=== PATIENT | female | born 1970 | race Caucasian/White ===

== ENCOUNTER 2023-07-29 11:24 | Emergency (ER) | payer BC, SELFPAY ==
[2023-07-29 11:27] VITALS: BP 134/81
--- NOTE | 2023-07-29 13:29 | ED.GENMED ---
History of Present Illness
<ANDERSON Guajardo - Last Filed: 07/29/23 20:16>
General
Chief Complaint: Abdominal Pain
Source: patient
Exam Limitations: none
Time Seen by Provider: 07/29/23 13:04
Nursing documentation reviewed up to this point in time: agreed with
Travel History
Have you had any contact with someone who has COVID-19?: No
Do you have any symptoms of coronavirus? Fever > 100 degrees, chills, cough, shortness of breath, sore throat, loss of taste or smell, muscle aches, or headache?: No
History of Present Illness
History of Present Illness:
Patient is a 53-year-old female status post hysterectomy 328 at [facility](6 d agao). Patient reports it was done through her umbilicus. Thursday she had a lot of gas pains but on Thursday she noticed upper abdominal pain and bilateral back
pain. Where she feels a twisting and a popping sensation in her abdomen and feels a lump to the left side of her umbilical region. She has been a little constipated but has been using MiraLAX and did move her bowels twice today, small bowel
movement. She denies any nausea vomiting she denies any fever chills. She reports she feels very hot and she is very anxious over the situation. She denies any urinary frequency urgency or dysuria. Denies any shortness of breath.
Past History
<ANDERSON Guajardo - Last Filed: 07/29/23 20:16>
Past History
ED Past Medical History: Asthma, Hypercholesterolemia, Hypothyroidism and Other (Migraine, PVCs, hypercholesterolemia)
ED Past Surgical History: Other (Sinus)
Social History
Tobacco: Non-smoker
Alcohol: None
Drug: None
Personal:
Living: with family
Employment: Employed
Family History
Family History: CAD and Other (hyperCholesterolemia, diabetes)
Review of Systems
<ANDERSON Guajardo - Last Filed: 07/29/23 20:16>
Review of Systems
Allergies reviewed?: Yes
All Other Systems: ROS reviewed and negative except as documented in HPI and ROS
Constitutional: Reports no symptoms; Denies fever, fatigue or chills
EENT: Reports no symptoms
Respiratory: Reports no symptoms
Cardiac: Reports no symptoms
ABD/GI: Reports abdominal pain, nausea and constipated; Denies vomiting
: Reports no symptoms
Musculoskeletal: Reports back pain
Neurological: Reports no symptoms
Hematologic/Lymphatic: Reports no symptoms
Psychiatric: Reports no symptoms
Phy Exam
<ANDERSON Guajardo - Last Filed: 07/29/23 20:16>
General Physical Exam
General Presentation: no apparent distress
General age: appears stated age
General Skin: warm and dry
General Habitus: normal
General Mental: alert
General Hydration: appears well hydrated
Cardiovascular Exam
Cardiovascular Exam: regular rate/rhythm, no murmur and normal peripheral pulses
Pulmonary Exam
Pulmonary Exam: lungs clear and no respiratory distress
Gastrointestinal Exam
Gastrointestinal Exam: soft and other (Ecchymosis around umbilical area+ tender to the left of the umbilical region questionable small palpable superficial mass around umbilicus, no erythema to umbilical region abd soft )
Neurological Exam
Neurological Exam: alert and oriented x3
Musculoskeletal Exam
Musculoskeletal Exam: full ROM
Skin Exam
Skin Exam: normal color and warm/dry
Psychiatric Exam
Psychiatric Exam: anxious
Course
<ANDERSON Guajardo - Last Filed: 07/29/23 20:16>
Orders/Labs/Results
Orders:
Orders
07/29/23 13:22
Cardiac Monitoring- Treatment ONCE
IV Insert/Care/Rem.- Treatment PRN
0.9% Sodium Chloride 1000 ml [Nss] 1,000 ml IV BOLUS
07/29/23 13:45
CT Abd/pel (oral only)-[facility] Only Urgent
Comment:
Reason For Exam: post op abd pain, incisional lump
Iohexol [Omnipaque] See Protocol PO NOW STA
07/29/23 13:57
Complete Blood Count/With Diff Urgent
Comprehensive Metabolic Panel Urgent
Urinalysis Reflex To Culture Urgent
Date Specimen was Collected: 07/29/23
Time Specimen was Collected: 13:30
07/29/23 14:03
Iohexol [Omnipaque] 50 ml .ROUTE .[facility]
07/29/23 17:21
Vital Signs- Treatment ONCE
Frequency: Once
Abnormal Lab Results
07/29/23
13:57
MCH 25.6 L pg
(27.0-31.0)
MCHC 31.5 L g/dL
(33.0-37.0)
RDW 14.9 H %
(11.5-14.5)
Lymphocytes % 16.7 L %
(20.5-51.1)
Carbon Dioxide 21 L mmol/L
(22-30)
Glucose 105 H mg/dl
(70-99)
07/29/23 13:57
07/29/23 13:57
Vital Signs
Initial and Last Documented VS:
Initial Vital Signs
Temp Pulse Resp BP Pulse Ox
98.7 F 100 18 134/81 98
07/29/23 11:27 07/29/23 11:27 07/29/23 11:27 07/29/23 11:27 07/29/23 11:27
Last Documented Vital Signs
Temp Pulse Resp BP Pulse Ox
98.7 F 104 20 131/91 95
07/29/23 11:27 07/29/23 17:26 07/29/23 17:26 07/29/23 17:24 07/29/23 17:24
Inspector Tool consulted with Physician
Inspector Tool consulted with physician?: Yes
Name of Physician Consulted: [place]
<Isidro Hahn MD - Last Filed: 07/29/23 15:17>
Orders/Labs/Results
Orders:
Orders
07/29/23 13:22
Cardiac Monitoring- Treatment ONCE
IV Insert/Care/Rem.- Treatment PRN
0.9% Sodium Chloride 1000 ml [Nss] 1,000 ml IV BOLUS
07/29/23 13:45
CT Abd/pel (oral only)-[facility] Only Urgent
Comment:
Reason For Exam: post op abd pain, incisional lump
Iohexol [Omnipaque] See Protocol PO NOW STA
07/29/23 13:57
Complete Blood Count/With Diff Urgent
Comprehensive Metabolic Panel Urgent
Urinalysis Reflex To Culture Urgent
Date Specimen was Collected: 07/29/23
Time Specimen was Collected: 13:30
07/29/23 14:03
Iohexol [Omnipaque] 50 ml .ROUTE .[facility]
07/29/23 17:21
Vital Signs- Treatment ONCE
Frequency: Once
Abnormal Lab Results
07/29/23
13:57
MCH 25.6 L pg
(27.0-31.0)
MCHC 31.5 L g/dL
(33.0-37.0)
RDW 14.9 H %
(11.5-14.5)
Lymphocytes % 16.7 L %
(20.5-51.1)
Carbon Dioxide 21 L mmol/L
(22-30)
Glucose 105 H mg/dl
(70-99)
07/29/23 13:57
07/29/23 13:57
Vital Signs
Initial and Last Documented VS:
Initial Vital Signs
Temp Pulse Resp BP Pulse Ox
98.7 F 100 18 134/81 98
07/29/23 11:27 07/29/23 11:27 07/29/23 11:27 07/29/23 11:27 07/29/23 11:27
Last Documented Vital Signs
Temp Pulse Resp BP Pulse Ox
98.7 F 104 20 131/91 95
07/29/23 11:27 07/29/23 17:26 07/29/23 17:26 07/29/23 17:24 07/29/23 17:24
<ANDERSON Guajardo - Last Filed: 07/29/23 20:16>
MDM/Problems Addressed
Differential Diagnosis Includes:
Not limited to seroma, less likely hernia
MDM/Problems Addressed:
As documented patient presented to the ER complaining of abdominal pain and was concerned about the palpable lumps that she noticed around her umbilical region since her hysterectomy July 22 at [facility]. She presents awake alert no acute
distress she is very anxious. She is afebrile denies any recent fevers with a normal white count stable hemoglobin of 12.1 normal kidney function. On exam patient does have scattered round umbilical area/surgical site small palpable superficial
mass. Patient has anaphylactic allergy to IV contrast. Patient was eval by ED physician or it was done. CAT scan does show increased band of density with stranding around the surrounding fat in the anterior abdominal wall likely postsurgical
changes and inflammation at this laparoscopic portal site. There is no evidence of abscess.
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 I did recommend close outpatient follow-up with family doctor for
these findings however I also reviewed with patient the importance of follow-up with her surgeon/gynecology for continued symptoms.
<ANDERSON Guajardo - Last Filed: 07/29/23 20:16>
*Radiology
Radiology exam reviewed: radiology read reviewed
*Pulse Oximetry
Patient hypoxic: no
*Critical Care Note
Total Time (30-74mins, 75-104mins- exclusive of procedures): Not Applicable
ED Attending Note
<ANDERSON Guajardo - Last Filed: 07/29/23 20:16>
-
Portions of this chart may have been created with voice recognition software.� Occasional wrong word or��sound alike� substitutions may have occurred due to the inherent limitations of voice recognition software.
<Isidro Hahn MD - Last Filed: 07/29/23 15:17>
ED Attending Note
Patient seen and examined by attending physician: Yes
ED Attending Note:
I have seen and evaluated the patient with a [id number] encounter. I have spoken to the advance practicer provider and involved in the medical history, the physical exam, medical decision making.
Evaluation and management service: agree unless noted differently below.
Results interpretation: agree unless noted differently below.
Focused HPI: 53-year-old female with history as documented presents to the emergency room for evaluation of abdominal pain. Patient had laparoscopic hysterectomy at [facility] 07/22. She says that since then she has had some mild low back pain
and abdominal pain postoperatively but over the past few days she has noticed increasing pain around the incision and she feels that there is a small bump around the incision. She was concerned for hernia and she feels the pain is generally
worsening and so she came to the emergency room to be assessed. She has not had any vomiting but has had some mild nausea. She is constipated but is still passing stools and gas. Last bowel movement today.
Physical exam: Awake alert extremely anxious but not in distress. Tachycardic but otherwise normal vitals. Her abdomen is soft and nondistended; she has some mild bruising around the umbilicus and a clean appearing incision just inferior to the
umbilicus. There is no dehiscence of the incision. There is a small mobile mass inferior and lateral to the incision which is tender to the touch.
Medical Decision Makin-year-old female presents for evaluation of abdominal pain, back pain and also a small mobile mass around her surgical incision from hysterectomy on 07/22. Exam as above. Labs sent off including CBC and CMP which showed
no clinically significant maladies. Urinalysis negative. Suspect likely normal postoperative pain and possibly either suture reaction or seroma accounts for the small mobile mass near the incision. Patient has anaphylactic allergy to IV dye we
will plan for a CT of the abdomen pelvis with p.o. contrast only to better evaluate. If negative, discharge to follow-up with her surgeon as an outpatient.
Discharge Plan
Departure
Patient Disposition: Home (Routine Discharge)
Date of Disposition: 07/29/23
Time of Disposition: 17:21
Patient with high blood pressure during this ER visit?: Yes
Condition: Fair
Covid-19: Not Applicable
Discharge Problem:
Abdominal pain
Instructions: Abdominal Pain
Prescriptions:
No Action
clonazepam 0.5 MG tablet
0.5 mg PO DAILY
Patient Comments:
Levothyroxine
25 mcg PO DAILY
Patient Comments:
every other day.
ketorolac 10 MG tablet
10 mg PO PRN PRN (Reason: pain)
levalbuterol tartrate 1 PUFF HFA aerosol inhaler
1 puff inhalation R Q4HPRN PRN (Reason: SOB)
budesonide-formoterol [Symbicort] 1 PUFF HFA aerosol inhaler
2 puff inhalation R BID
Referrals:
Lamonte Levine MD [Family Provider] -
Activity Restrictions/Additional Instructions:
As discussed follow-up with your BELLY PACKER who did your hysterectomy. Please call tomorrow to make an appointment for follow-up in the next several days. You may also follow-up with your family doctor for further evaluation and have your doctor
follow-up on additional findings as reviewed on ct scan.
Return if any worsening of symptoms
Interventions
Interventions:
*Risk Screen - Suicide Last Done: 07/29/23 11:27
*General Assessment Last Done: 07/29/23 14:13
*Neglect/Abuse Screening Last Done: 07/29/23 11:27
ED- Fall Risk Assessment Last Done: 07/29/23 17:30
*ED COVID-19 Vaccine History Last Done: 07/29/23 11:27
*Nursing Disposition Last Done: 07/29/23 17:30
KV-Jibwid-Btrxhotaii Assessment Last Done: 07/29/23 14:11
Discharge Date and Time
Discharge Date/Time: 07/29/23 17:31
Print Language: SERBIAN
[2023-07-29 14:00] VITALS: BP 118/82
[2023-07-29] MEDS: OMNIPAQUE 50 ML PO (14:06)
[2023-07-29] MEDS: NSS 1000 IV (14:07)
[2023-07-29 14:17] LABS: % Basophils 0.8 % (0-2); % Eosinophils 1.4 % (0-6); % Immature Granulocytes 0.3 % (0-0.5); % Lymphocytes 16.7 % (20.5-51.1); % Neutrophils 74.8 % (42.2-75.2); Absolute Basophils 0.1 10^3/uL (0-0.2); Absolute Eosinophils 0.1 10^3/uL (0-0.7); Absolute Lymphocytes 1.3 10^3/uL (1.2-3.4); Absolute Monocytes 0.5 10^3/uL (0.1-0.6); Absolute Neutrophils 5.9 10^3/uL (1.4-6.5); Hematocrit 38.4 % (37.0-47.0); Hemoglobin 12.1 g/dL (12.0-16.0); Mean Corp Hgb Conc. 31.5 g/dL (33.0-37.0); Mean Corpuscular Hgb 25.6 pg (27.0-31.0); Mean Corpuscular Volume 81.4 fL (81.0-99.0); Mean Platelet Volume 10.4 fL (7.4-10.4); Nucleated Red Blood Cells % 0 %; Platelet Count 243 10^3/uL (130-400); Red Blood Cell Count 4.72 10^6/uL (4.20-5.40); Red Cell Dist. Width 14.9 % (11.5-14.5); White Blood Cell Count 7.9 10^3/uL (4.8-10.8)
[2023-07-29 14:19] LABS: Urine Albumin Negative (Neg - Trace); Urine Bilirubin Negative (Negative); Urine Character Clear (Clear); Urine Color Yellow; Urine Glucose Negative (Negative); Urine Ketone Negative (Negative); Urine Leukocyte Negative (Negative); Urine Nitrite Negative (Negative); Urine Occult Blood Negative (Negative); Urine Urobilinogen Negative (Neg - 1+); Urine pH 6.5 (5.0-9.0)
[2023-07-29 14:44] LABS: ALT (SGPT) 21 U/L (0-35); AST (SGOT) 31 U/L (14-36); Albumin 4.3 g/dl (3.5-5.0); Alkaline Phosphatase 82 U/L (38-126); Blood Urea Nitrogen 11 mg/dl (7-17); Calcium 9.5 mg/dl (8.4-10.2); Carbon Dioxide 21 mmol/L (22-30); Chloride 105 mmol/L (98-107); Glucose 105 mg/dl (70-99); Potassium 4.5 mmol/L (3.5-5.1); Sodium 135 mmol/L (135-145); Total Bilirubin 0.3 mg/dl (0.2-1.3); Total Protein 7.6 g/dl (6.3-8.2); eGFR > 60.00
[2023-07-29 17:24] VITALS: BP 131/91
== END 2023-07-29 17:31 | disposition home or self-care (01) ==
LOC: EMR 11:24
PROVIDERS: Nurse Practitioner; EMERGENCY PHYSICIAN Emergency Medicine; FAMILY PHYSICIAN Family Medicine
DX: R10.10 Upper abdominal pain, unspecified (principal); M54.9 Dorsalgia, unspecified; J45.909 Unspecified asthma, uncomplicated; E78.00 Pure hypercholesterolemia, unspecified; E03.9 Hypothyroidism, unspecified; I49.3 Ventricular premature depolarization
CPT/HCPCS: 99284; 96360; 74176; 80053; 81003; 85025

== ENCOUNTER 2023-08-24 16:26 | Emergency (ER) | payer BC, SELFPAY ==
[2023-08-24 16:26] VITALS: BMI 28.1
[2023-08-24 16:37] VITALS: BP 145/82
[2023-08-24 17:07] LABS: % Basophils 0.4 % (0-2); % Eosinophils 0.3 % (0-6); % Immature Granulocytes 0.3 % (0-0.5); % Lymphocytes 10.8 % (20.5-51.1); % Monocytes 5.9 % (1.7-9.3); % Neutrophils 82.3 % (42.2-75.2); Absolute Basophils 0.1 10^3/uL (0-0.2); Absolute Lymphocytes 1.3 10^3/uL (1.2-3.4); Absolute Monocytes 0.7 10^3/uL (0.1-0.6); Absolute Neutrophils 9.8 10^3/uL (1.4-6.5); Hematocrit 39.2 % (37.0-47.0); Hemoglobin 12.5 g/dL (12.0-16.0); Mean Corp Hgb Conc. 31.9 g/dL (33.0-37.0); Mean Corpuscular Hgb 25.8 pg (27.0-31.0); Mean Corpuscular Volume 80.8 fL (81.0-99.0); Mean Platelet Volume 10.2 fL (7.4-10.4); Nucleated Red Blood Cells % 0 %; Platelet Count 188 10^3/uL (130-400); Red Blood Cell Count 4.85 10^6/uL (4.20-5.40); Red Cell Dist. Width 14.6 % (11.5-14.5); White Blood Cell Count 11.9 10^3/uL (4.8-10.8)
[2023-08-24 17:15] LABS: ALT (SGPT) 27 U/L (0-35); AST (SGOT) 39 U/L (14-36); Albumin 4.5 g/dl (3.5-5.0); Alkaline Phosphatase 91 U/L (38-126); Blood Urea Nitrogen 16 mg/dl (7-17); Calcium 9.5 mg/dl (8.4-10.2); Carbon Dioxide 28 mmol/L (22-30); Chloride 102 mmol/L (98-107); Glucose 116 mg/dl (70-99); Potassium 4.5 mmol/L (3.5-5.1); Sodium 134 mmol/L (135-145); Total Bilirubin 0.4 mg/dl (0.2-1.3); Total Protein 8.1 g/dl (6.3-8.2); eGFR > 60.00
[2023-08-24 17:30] LABS: Troponin I < 0.012 ng/ml
[2023-08-24 20:36] VITALS: BP 124/78
[2023-08-24 21:24] LABS: D-Dimer 2.02 ug/mlFEU (0.00-0.50)
[2023-08-24] MEDS: SOLU-CORTEF 200 MG IV (21:50)
[2023-08-24] MEDS: BENADRYL 50 MG IV (21:50)
--- NOTE | 2023-08-24 21:50 | ED.GENMED ---
History of Present Illness
General
Chief Complaint: Chest Pain
Source: patient
Exam Limitations: none
Time Seen by Provider: 08/24/23 20:02
Nursing documentation reviewed up to this point in time: agreed with
Travel History
Have you had any contact with someone who has COVID-19?: No
Do you have any symptoms of coronavirus? Fever > 100 degrees, chills, cough, shortness of breath, sore throat, loss of taste or smell, muscle aches, or headache?: No
History of Present Illness
History of Present Illness:
Patient status post elective hysterectomy 4 weeks ago, presents to ED secondary to 2-day history of persistent left-sided chest pain. Chest pain described as sharp, worse with certain movements and deep inspiration, along with mild shortness of
breath. Denies direct trauma. Denies fever or chills. Denies nausea or vomiting. Patient does report having worked outdoors, i.e. [employer], for the past 2 days, and is wondering whether or not her pain may be musculoskeletal. Denies family
history of blood clots. Denies recent travel. Denies leg pain or swelling. Denies back pain. Denies family history of early heart disease.
Past History
Past History
ED Past Medical History: Asthma, Hypercholesterolemia, Hypothyroidism and Other (Migraine, PVCs, hypercholesterolemia)
ED Past Surgical History: Other (Sinus)
Social History
Tobacco: Non-smoker
Alcohol: None
Drug: None
Personal:
Living: with family
Employment: Employed
Family History
Family History: CAD and Other (hyperCholesterolemia, diabetes)
Review of Systems
Review of Systems
Allergies reviewed?: Yes
All Other Systems: ROS reviewed and negative except as documented in HPI and ROS
Constitutional: Reports no symptoms
EENT: Reports no symptoms
Respiratory: Reports trouble breathing
Cardiac: Reports chest pain
ABD/GI: Reports no symptoms
: Reports no symptoms
Musculoskeletal: Reports no symptoms
Skin: Reports no symptoms
Neurological: Reports no symptoms
Phy Exam
Physical Exam
Physical Exam:
Physical Exam
General: mild distress, not acutely ill. afebrile
Head: nc/at. eomi
Neck: supple. no meningeal signs.
Heart: s1/s2 regular rate and rhythm, no murmur. equal radial pulses.
Lungs: no acute respiratory distress. clear bilaterally. chest wall nontender to palpation.
Abdomen: normal bowel sounds. not tender.
Neuro: alert and oriented. no focal neurological deficits
Skin: no rash
Psychiatric: well kept. interactive and cooperative
Extremities: no edema. no calf tenderness.
Scores
Heart Score for Chest Pain Patients
STEMI patient?: No
History: Slightly or Non-Suspicious
ECG: Normal
Age: >45 - <65 years
Risk Factors: 1 or 2 Risk Factors
Troponin: </= Normal Limit
Heart Score for Chest Pain Patients: 2
Heart Score Risk: 2.5% MACE over next 6 weeks
Course
Orders/Labs/Results
Orders:
Orders
08/24/23 16:41
Electrocardiogram (*1) Urgent
Reason for Study: Chest Pain
EKG- Treatment ONCE
08/24/23 16:48
CMP [Comprehensive Metabolic Panel] Urgent
Complete Blood Count/With Diff Urgent
Troponin I Urgent
08/24/23 21:00
D-Dimer Urgent
08/24/23 21:33
Diphenhydramine [Benadryl] 50 mg IV NOW STA
Hydrocortisone Sod Succinate [Solu-Cortef] 200 mg IV NOW STA
08/24/23 21:37
CT Chest Pe Study Urgent
Comment:
Reason For Exam: CP/SOB w elevated d-dimer
Abnormal Lab Results
08/24/23 08/24/23
16:48 21:00
WBC 11.9 H 10^3/uL
(4.8-10.8)
MCV 80.8 L fL
(81.0-99.0)
MCH 25.8 L pg
(27.0-31.0)
MCHC 31.9 L g/dL
(33.0-37.0)
RDW 14.6 H %
(11.5-14.5)
Absolute Neuts (auto) 9.8 H 10^3/uL
(1.4-6.5)
Absolute Monos (auto) 0.7 H 10^3/uL
(0.1-0.6)
Neutrophils % 82.3 H %
(42.2-75.2)
Lymphocytes % 10.8 L %
(20.5-51.1)
D-Dimer 2.02 H ug/mlFEU
(0.00-0.50)
Sodium 134 L mmol/L
(135-145)
Glucose 116 H mg/dl
(70-99)
AST 39 H U/L
(14-36)
08/24/23 16:48
08/24/23 16:48
Vital Signs
Initial and Last Documented VS:
Initial Vital Signs
Temp Pulse Resp BP Pulse Ox
98.1 F 103 18 145/82 98
08/24/23 16:37 08/24/23 16:37 08/24/23 16:37 08/24/23 16:37 08/24/23 16:37
Last Documented Vital Signs
Temp Pulse Resp BP Pulse Ox
98.1 F 99 23 127/60 97
08/24/23 16:37 08/24/23 23:45 08/24/23 23:45 08/24/23 21:54 08/24/23 23:45
MDM/Problems Addressed
MDM/Problems Addressed:
History and exam with likely musculoskeletal origin for her presentation. However, in light of recent surgery along with elevated D-dimer, difficult to exclude possibility of pulmonary embolism. As such, decision made to obtain CT angiogram, to
evaluate for potential pulmonary embolism.
Due to patient's significant allergy history to IV dye, patient prepped with hydrocortisone and Benadryl prior to study.
CTA: no PE. Subtle pneumonia suggested, but patient without any respiratory symptoms. Doubt infectious etiology.
Pt otherwise is afebrile, hemodynamically stable, and without any acute respiratory distress, at time of discharge, to the care of her . Recommended primary care physician/cardiology follow-up as an outpatient. Pt given a copy of CT scan
prior to discharge, to be reviewed by her physicians.
*EKG
Interpreted by ED Provider?: Yes
EKG Intrepretation Date: 08/24/23
Heart Rate: 95
Rate: normal
Rhythm: sinus
Ophiem: normal axis
Interval: normal interval
*Critical Care Note
Total Time (30-74mins, 75-104mins- exclusive of procedures): Not Applicable
ED Attending Note
-
Portions of this chart may have been created with voice recognition software.� Occasional wrong word or��sound alike� substitutions may have occurred due to the inherent limitations of voice recognition software.
Discharge Plan
Departure
Patient Disposition: Home (Routine Discharge)
Date of Disposition: 08/24/23
Time of Disposition: 23:53
Patient with high blood pressure during this ER visit?: Yes
Condition: Good
Discharge Problem:
Chest pain
Instructions: Chest Pain That Is Not Caused by the Heart (DC)
Prescriptions:
No Action
clonazepam 0.5 MG tablet
0.5 mg PO DAILY
Patient Comments:
Levothyroxine
25 mcg PO DAILY
Patient Comments:
every other day.
ketorolac 10 MG tablet
10 mg PO PRN PRN (Reason: pain)
levalbuterol tartrate 1 PUFF HFA aerosol inhaler
1 puff inhalation R Q4HPRN PRN (Reason: SOB)
budesonide-formoterol [Symbicort] 1 PUFF HFA aerosol inhaler
2 puff inhalation R BID
Referrals:
Lamonte Levine MD [Family Provider] -
Activity Restrictions/Additional Instructions:
As discussed, please follow up with your primary care physician and/or assemblyman or woman with any further concerns.
Interventions
Interventions:
*Risk Screen - Suicide Last Done: 08/25/23 00:44
*General Assessment Last Done: 08/25/23 00:44
*Neglect/Abuse Screening Last Done: 08/25/23 00:44
*ED COVID-19 Vaccine History Last Done: 08/25/23 00:44
*Nursing Disposition Last Done: 08/25/23 00:45
ED- Cardiac Assessment Last Done: 08/24/23 22:41
Discharge Date and Time
Discharge Date/Time: 08/25/23 00:45
Print Language: TURKMEN
[2023-08-24 21:54] VITALS: BP 127/60
== END 2023-08-25 00:45 | disposition home or self-care (01) ==
LOC: EMR 16:26
PROVIDERS: Emergency Medicine; EMERGENCY PHYSICIAN Emergency Medicine; FAMILY PHYSICIAN Family Medicine
DX: R07.89 Other chest pain (principal); R03.0 Elevated blood-pressure reading, without diagnosis of hypertension
CPT/HCPCS: 99285; 96374; 96375; 71275; 80053; 84484; 85025; 85379; 93005; Q9967

== ENCOUNTER → 2023-09-01 15:02 | Outpatient (REF) | payer BC, SELFPAY | LOC: HWRCS 15:02 | PROVIDERS: ATTENDING PHYSICIAN Internal Medicine Cardiovascular Disease; FAMILY PHYSICIAN Family Medicine | DX: R07.89 Other chest pain (principal); R00.2 Palpitations; R06.09 Other forms of dyspnea; Z82.49 Family history of ischemic heart disease and other diseases of the circulatory system | CPT/HCPCS: 93306 ==

== ENCOUNTER → 2025-03-13 14:13 | Outpatient (REF) | payer BC, SELFPAY | LOC: WDC 14:13 | PROVIDERS: ATTENDING PHYSICIAN Obstetrics & Gynecology; FAMILY PHYSICIAN Family Medicine | DX: Z12.31 Encounter for screening mammogram for malignant neoplasm of breast (principal) | CPT/HCPCS: 77063; 77067 ==